=== PATIENT | male | born 2005 | race Hispanic/Latino ===

== ENCOUNTER 2024-11-25 20:00 | Emergency (ER) | payer OTHER, SELFPAY ==
[2024-11-25] MEDS ORDERED: Dexamethasone 10 MG/ML VIAL ONE (21:16)
== END 2024-11-25 21:20 | disposition home or self-care (01) ==
LOC: CSHERS 20:00
DX: B34.9 Viral infection, unspecified (principal)
CPT/HCPCS: 87081; 87426; 87430; 99283; J1100